=== PATIENT | male | born 1980 | race Caucasian/White ===

== ENCOUNTER 2019-06-24 19:07 | Emergency (ER) | payer BC ==
[~2019-06-24] VITALS: Ht 182.9 cm; Wt 88.5 kg
[~2019-06-24 19:07] MED LIST: CARV12.5 PO; DABI150C PO; ENAL10TA2 PO; FURO40TA5 PO; LEVO25TA9 PO; SAME MEDS
--- NOTE | 2019-06-24 19:15 | NUR ---
BIB FAMILY FOR EVALUATION OF RLE BLEEDING FROM THE VARICOSE VAIN SCRATCHING IT WHILE TAKING SHOWER.
--- NOTE | 2019-06-24 19:21 | NUR ---
BUTCH NAVA A PAC AT THE BED SIDE
--- NOTE | 2019-06-24 19:27 | NUR ---
PRESSURE DRESSING APPLIED. BLEEDING STOPPED
[2019-06-24 19:52] VITALS: BP 113/68
--- NOTE | 2019-06-24 19:52 | NUR ---
Patient discharged to home in stable condition. Written and verbal after care instructions given. Patient verbalizes understanding of instruction. pt was assisted to the car via w[place]
== END 2019-06-24 19:52 | disposition home or self-care (01) ==
LOC: ER 19:10
DX: I83.91 Asymptomatic varicose veins of right lower extremity (principal); I10 Essential (primary) hypertension; I48.91 Unspecified atrial fibrillation; Z98.890 Other specified postprocedural states; Z88.0 Allergy status to penicillin; Z79.899 Other long term (current) drug therapy
CPT/HCPCS: 99281; A6403